=== PATIENT | female | born 1995 | race Caucasian/White ===

== ENCOUNTER 2020-07-13 17:44 | Emergency (ER) | payer OTHER ==
[~2020-07-13] VITALS: Ht 165.1 cm; Wt 68.2 kg
[2020-07-13 17:54] VITALS: TEMP 97.1
[2020-07-13] MEDS ORDERED: ZITHROMAX Z PA250 MG PO (18:56)
[2020-07-13] MEDS ORDERED: PREDNISONE20 MG PO (18:56)
[2020-07-13 19:13] VITALS: BP 121/79; PULSE 61
== END 2020-07-13 19:14 | disposition home or self-care (01) ==
LOC: COL.ER 17:44
DX: R07.81 Pleurodynia (principal); U07.1 COVID-19